=== PATIENT | female | born 1940 ===

== ENCOUNTER 2019-02-20 06:35 | Day surgery (SDC) | payer OTHER | END 2019-02-20 15:45 | disposition home or self-care (01) | LOC: AMB-ENDOS 06:35 | DX: D12.2 Benign neoplasm of ascending colon (principal); K64.8 Other hemorrhoids ==

== ENCOUNTER 2019-03-27 13:28 | Inpatient (IN) | payer OTHER ==
[~2019-03-27] VITALS: Ht 160 cm; Wt 44.0 kg
[2019-03-27] MEDS ORDERED: SYNTHROID88 MCG PO (16:15)
[2019-03-27] MEDS ORDERED: BACLOFEN10 MG PO (16:16)
[2019-03-27] MEDS ORDERED: AMLODIPINE-OLM1 EACH PO (16:16)
[2019-03-27] MEDS ORDERED: RESTASIS1 EACH OP (16:16)
[2019-03-27] MEDS ORDERED: SEROQUEL25 MG PO (16:17)
[2019-03-27] MEDS ORDERED: TOPROL XL25 M1 PO (16:17)
[2019-03-27] MEDS ORDERED: CLONAZEPAM1 M1 PO (16:17)
== END 2019-04-01 15:56 | disposition home or self-care (01) | DRG 331 ==
LOC: O/R 13:45 → SURH 03-29 08:00
PROVIDERS: ADMIT Colon & Rectal Surgery
PROC: 07TB4ZZ Resection of Mesenteric Lymphatic, Percutaneous Endoscopic Approach (ICD-10-PCS; 2019-03-29)
PROC: 0DTU4ZZ Resection of Omentum, Percutaneous Endoscopic Approach (ICD-10-PCS; 2019-03-29)
PROC: 4A1BXSH Monitoring of Gastrointestinal Vascular Perfusion using Indocyanine Green Dye, External Approach (ICD-10-PCS; 2019-03-29)
PROC: 4A12X4Z Monitoring of Cardiac Electrical Activity, External Approach (ICD-10-PCS; 2019-03-29)
PROC: 4A033R1 Measurement of Arterial Saturation, Peripheral, Percutaneous Approach (ICD-10-PCS; 2019-03-29)
PROC: 3E0F7GC Introduction of Other Therapeutic Substance into Respiratory Tract, Via Natural or Artificial Opening (ICD-10-PCS; 2019-03-29)
PROC: 0DTF4ZZ Resection of Right Large Intestine, Percutaneous Endoscopic Approach (ICD-10-PCS; principal; 2019-03-29 13:15)
DX: C18.2 Malignant neoplasm of ascending colon (principal); D12.2 Benign neoplasm of ascending colon; R59.0 Localized enlarged lymph nodes; E03.8 Other specified hypothyroidism